=== PATIENT | female | born 1965 | race Caucasian/White ===

== ENCOUNTER 2017-03-23 21:03 | Emergency (ER) | payer MEDICAID ==
[2017-03-23] MEDS ORDERED: KETOROLAC 60 MG/2 ML VIAL IVP STA (21:36)
[2017-03-23] MEDS ORDERED: KETOROLAC 60 MG/2 ML VIAL ONE (21:38)
[2017-03-23] MEDS ORDERED: KETOROLAC 30 MG/ML VIAL ONE (21:41)
[2017-03-23] MEDS ORDERED: IOPAMIDOL-300 100 ML VIAL IVP ONE (22:45)
[2017-03-23] MEDS ORDERED: CIPROFLOXACIN 250 MG TABLET PO STA (23:44)
[2017-03-23] MEDS ORDERED: HYDROcod/ACET 5/325 Prepack 6 PO STA (23:44)
[2017-03-23] MEDS ORDERED: metroNIDAZOLE 250 MG TABLET PO STA (23:44)
[2017-03-23] MEDS ORDERED: HYDROmorphone 1 MG/ML SYRINGE IVP STA (23:44)
[2017-03-23] MEDS ORDERED: HYDROmorphone 1 MG/ML SYRINGE ONE (23:46)
[2017-03-23] MEDS ORDERED: metroNIDAZOLE 250 MG TABLET PO ONE (23:47)
[2017-03-23] MEDS ORDERED: CIPROFLOXACIN 250 MG TABLET PO ONE (23:47)
[2017-03-23] MEDS ORDERED: HYDROcod/ACET 5/325 Prepack 6 PO ONE (23:47)
== END 2017-03-23 23:58 | disposition home or self-care (01) ==
DX: K57.32 Diverticulitis of large intestine without perforation or abscess without bleeding (principal); K76.0 Fatty (change of) liver, not elsewhere classified; I10 Essential (primary) hypertension
CPT/HCPCS: 36415; 74177; 80053; 81001; 83690; 85025; 96374; 96375; 99283; 99284; A9270; J1170; Q9967

== ENCOUNTER 2018-09-05 13:51 | Outpatient (CLI) | payer MEDICAID ==
[2018-09-05 19:08] LABS: ALBUMIN 3.9 g/dL (3.2-5.5); ALKALINE PHOSPHATASE 104 IU/L (42-121); ALT ALANINE AMINOTRANSFERASE 53 IU/L (10-60); AST ASPARTATE AMINOTRANSFERASE 41 IU/L (10-42); BILIRUBIN,TOTAL 0.4 mg/dL (0.2-1.0); BUN - BLOOD UREA NITROGEN 14 mg/dL (6-20); CALCIUM 9.1 mg/dL (8.5-10.3); CARBON DIOXIDE - CO2 27 mmol/L (21-32); CHLORIDE 103 mmol/L (101-111); CHOL/HDL RATIO 4.1 (<4.4); CHOLESTEROL 207 mg/dL; CREATININE 0.7 mg/dL (0.4-1.0); GFR - MDRD 88 (>89); GLUCOSE 94 mg/dL (70-100); HDL CHOLESTEROL 50 mg/dL; LDL CHOLESTEROL,CALCULATED 121 mg/dL; LDL/HDL RATIO 2.4 (<4.4); SODIUM 140 mmol/L (135-145); TOTAL PROTEIN 7.8 g/dL (6.7-8.2); VLDL CHOLESTEROL 36 mg/dL
[2018-09-05 19:12] LABS: BASOPHILS % (AUTO) 0.3 %; EOSINOPHILS # (AUTO) 0.1 10^3/uL (0.0-0.7); EOSINOPHILS % (AUTO) 1.5 %; HGB - HEMOGLOBIN 13.5 g/dL (12.0-16.0); LYMPHOCYTES # (AUTO) 2.6 10^3/uL (1.5-3.5); LYMPHOCYTES % (AUTO) 37.5 %; MEAN CORPUSCULAR HEMOGLOBIN 29.3 pg (27.0-31.0); MEAN CORPUSCULAR HGB CONC 33.1 g/dL (32.0-36.0); MEAN CORPUSCULAR VOLUME 88.5 fL (81.0-99.0); MEAN PLATELET VOLUME 9.3 fL (7.9-10.8); MONOCYTES # (AUTO) 0.4 10^3/uL (0.0-1.0); MONOCYTES % (AUTO) 5.4 %; NEUTROPHILS # (AUTO) 3.8 10^3/uL (1.5-6.6); NEUTROPHILS % (AUTO) 55.3 %; PLT - PLATELET COUNT 247 10^3/uL (130-450); RED BLOOD COUNT 4.61 10^6/uL (4.20-5.40); RED CELL DISTRIBUTION WIDTH 14.4 % (12.0-15.0); WHITE BLOOD COUNT 6.8 x10^3/uL (4.8-10.8)
== END 2018-09-05 13:52 | disposition home or self-care (01) ==
LOC: LAB.N 13:51
PROVIDERS: ATTEND Family Medicine
DX: E55.9 Vitamin D deficiency, unspecified (principal); F32.9 Major depressive disorder, single episode, unspecified; I10 Essential (primary) hypertension
CPT/HCPCS: 36415; 80050; 80061; 82306; 83721

== ENCOUNTER 2018-12-01 20:34 | Outpatient (CLI) | payer MEDICAID ==
--- NOTE | 2018-12-03 14:24 | Ultrasound Report ---
Reason: ABDOMINAL BLOATING,ABDOMINAL PAIN,MORBID OBESITY Procedure Date: 12/01/2018 Accession Number: [id number] / [id number] Procedure: US - Pelvic w/Transvaginal CPT Code: FULL RESULT: EXAM: PELVIC ULTRASOUND EXAM DATE: 12/01/2018 09:15 PM. CLINICAL HISTORY: ABDOMINAL Bloating, abdominal Pain, morbid OBESITY. COMPARISON: ABDOMEN/PELVIS W/ 03/23/2017 10:40 PM. TECHNIQUE: Realtime transabdominal pelvic scan performed to identify the uterus and adnexa and as an overview of other pelvic structures, followed by transvaginal scan to provide greater detail of the uterus and adnexa, with static image documentation. FINDINGS: Uterus: Surgically absent. Cervix: Not well seen. The ovaries are not visualized. Free Fluid: None. Other: The urinary bladder appears unremarkable. IMPRESSION: The uterus is surgically absent. Nonvisualization of the ovaries. Unremarkable sonographic appearance of the urinary bladder. No free fluid visualized. RADIA
== END 2018-12-01 20:35 | disposition home or self-care (01) ==
LOC: DI 20:34
PROVIDERS: ATTEND Internal Medicine Gastroenterology
DX: R14.0 Abdominal distension (gaseous) (principal); R10.9 Unspecified abdominal pain; E66.01 Morbid (severe) obesity due to excess calories; Z90.710 Acquired absence of both cervix and uterus
CPT/HCPCS: 76830; 76856

== ENCOUNTER 2018-12-07 12:15 | Day surgery (SDC) | payer MEDICAID ==
[2018-12-07] MEDS ORDERED: LACTATED RINGERS 1,000 ML IV ONE (13:03)
[2018-12-07] MEDS ORDERED: fentaNYL 250 MCG/5 ML VIAL IVP ONE (14:00)
[2018-12-07] MEDS ORDERED: MIDAZOLAM 2 MG/2 ML VIAL IVP ONE (14:00)
[2018-12-07 15:12] VITALS: BP 157/53
== END 2018-12-07 12:16 | disposition home or self-care (01) ==
LOC: SDS 12:15
PROVIDERS: ATTEND Internal Medicine Gastroenterology
PROC: 0DJD8ZZ Inspection of Lower Intestinal Tract, Via Natural or Artificial Opening Endoscopic (ICD-10-PCS; principal; 2018-12-07 13:15)
DX: Z12.11 Encounter for screening for malignant neoplasm of colon (principal); E66.01 Morbid (severe) obesity due to excess calories; E55.9 Vitamin D deficiency, unspecified; J45.909 Unspecified asthma, uncomplicated; G47.33 Obstructive sleep apnea (adult) (pediatric); I10 Essential (primary) hypertension; D64.9 Anemia, unspecified; F40.240 Claustrophobia; Z68.43 Body mass index [BMI] 50.0-59.9, adult; F32.9 Major depressive disorder, single episode, unspecified; M53.80 Other specified dorsopathies, site unspecified
CPT/HCPCS: 45378; J3010; J7120

== ENCOUNTER 2018-12-11 07:07 | Outpatient (CLI) | payer MEDICAID ==
--- NOTE | 2018-12-11 11:20 | Ultrasound Report ---
Reason: ABDOMINAL BLOATING,ABDOMINAL PAIN,MORBID OBESITY Procedure Date: 12/11/2018 Accession Number: [id number] / [id number] Procedure: US - Abdomen Complete CPT Code: FULL RESULT: EXAM: ABDOMEN ULTRASOUND EXAM DATE: 12/11/2018 08:56 AM. CLINICAL HISTORY: Abdominal bloating, abdominal pain, morbid obesity. COMPARISON: None. TECHNIQUE: Real-time scanning was performed with static images obtained. FINDINGS: Liver: Markedly heterogeneous and echogenic liver parenchyma which limits evaluation for masses, no mass is seen. The right lobe of the liver measures at least 19.3 cm. Main portal vein flow: Hepatopetal. Gallbladder: Limited visualization of the gallbladder, impression of mobile calculus. Nontender. No pericholecystic fluid. Biliary System: Common bile duct measures 6 mm. No intrahepatic or extrahepatic ductal dilatation. Pancreas: Visualized portion is unremarkable. Kidneys: Right: 12 cm longitudinally. Normal. No contour-deforming mass, stones, or hydronephrosis. Left: 11 cm longitudinally. Normal. No contour-deforming mass, stones, or hydronephrosis. Spleen: 8.5 cm. Normal in size and echotexture. Aorta and Inferior Vena Cava: Unremarkable. Other: None. IMPRESSION: Echogenic liver parenchyma most often seen with steatosis. RADIA
== END 2018-12-11 07:08 | disposition home or self-care (01) ==
LOC: DI 07:07
PROVIDERS: ATTEND Internal Medicine Gastroenterology
DX: R14.0 Abdominal distension (gaseous) (principal); R10.9 Unspecified abdominal pain; E66.01 Morbid (severe) obesity due to excess calories
CPT/HCPCS: 76700

== ENCOUNTER 2019-01-08 08:53 | Day surgery (SDC) | payer MEDICAID ==
--- NOTE | 2019-01-08 09:17 | ANESTHESIA ---
Pre-Anesthesia VS, & Labs - Diagnosis cholelithiasis symptoms - Procedure laparoscopic cholecystectomy, possible IOC Vital Signs: Temp Pulse Resp BP Pulse Ox 36.8 C 65 18 168/79 H 98 01/08/19 09:00 01/08/19 09:00 01/08/19 09:00 01/08/19 09:00 01/08/19 09:00 Height 4 ft 11 in Weight (kg) 116.9 kg Body Mass Index 49.4 - NPO >8 hours - Is Patient ?: Not Applicable Home Medications and Allergies Home Medications: Ambulatory Orders No Known Home Medications 12/29/18 Active Medications Cefazolin Sodium 3 gm/ Sodium (Chloride) 100 mls @ 200 mls/hr IV ONCE ONE Stop: 01/08/19 10:29 No Known Home Medications 12/29/18 Allergies/Adverse Reactions: Allergies Allergy/AdvReac Type Severity Reaction Status Date / Time Penicillins Allergy Rash Verified 03/23/17 21:06 Anes History & Medical History - Anesthetic History Anesthesia Complications: reports: No previous complications Family history of Anesthesia Complications: Denies Family history of Malignant Hyperthermia: Denies - Medical History Cardiovascular: reports: Hypertension Pulmonary: reports: Sleep apnea Gastrointestinal: reports: Cholelithiasis, Other Urinary: reports: Kidney stones Musculoskeletal: reports: Chronic back pain Endocrine/Autoimmune: reports: None Skin: reports: None Smoking Status: Never smoker - Surgical History Gynecologic: Hysterectomy Exam General: Alert, Oriented x3, Cooperative, No acute distress Dental: WNL Mouth Openin Fingerbreadth Neck Mobility: Normal Mallampati classification: II Thyromental Distance: 4-6 cm Respiratory: Lungs clear, Normal breath sounds, No respiratory distress, No accessory muscle use Cardiovascular: Regular rate, Normal S1, Normal S2, No murmurs Mental/Cognitive Status: Alert/Oriented X3, Normal for patient Cognitive Status: Within normal limits Plan Anesthesia Type: General Consent for Procedure(s) Verified and Reviewed: Yes Code Status: Attempt Resuscitation ASA classification: 2-Mild systemic disease Is this case an emergency?: No
[2019-01-08] MEDS ORDERED: BUPIVACAINE 0.5% PF 30 ML VIAL ONE (09:28)
[2019-01-08] MEDS ORDERED: LACTATED RINGERS 1,000 ML IV ONE ×2 (09:48→12:09)
[2019-01-08] MEDS ORDERED: ceFAZolin 1 GM VIAL ONE (09:51)
[2019-01-08] MEDS ORDERED: BUPIVACAINE 0.5%-EPI 1:200000 PF 30 ML VIAL ONE (09:51)
[2019-01-08] MEDS ORDERED: ceFAZolin 3 GM in SODIUM CHLORIDE 0.9% 100ML 100 ML IV ONE (10:00)
[2019-01-08] MEDS ORDERED: IOTHALAMATE MEGLUMINE 50 ML VIAL ONE (10:04)
[2019-01-08] MEDS ORDERED: BUPIVACAINE 0.5%-EPI 1:200000 PF 30 ML VIAL SUBQ ONE (11:04)
[2019-01-08] MEDS ORDERED: SUGAMMADEX 500 MG/5 ML VIAL IVP ONE (11:38)
[2019-01-08] MEDS ORDERED: oxyCODONE 5 MG TABLET PO PRN (12:09)
[2019-01-08] MEDS ORDERED: IBUPROFEN 600 MG TABLET PO PRN (12:09)
[2019-01-08] MEDS ORDERED: ACETAMINOPHEN 325 MG TABLET PO PRN (12:09)
[2019-01-08] MEDS ORDERED: ONDANSETRON 4 MG/2 ML VIAL IVP PRN (12:09)
[2019-01-08] MEDS ORDERED: KETOROLAC 30 MG/ML VIAL IVP ONE (12:11)
[2019-01-08] MEDS ORDERED: ROCURONIUM 50 MG/5 ML VIAL IVP ONE (12:11)
[2019-01-08] MEDS ORDERED: PROPOFOL 200 MG/20 ML VIAL IVP ONE (12:11)
[2019-01-08] MEDS ORDERED: ONDANSETRON 4 MG/2 ML VIAL IVP ONE (12:11)
[2019-01-08] MEDS ORDERED: fentaNYL 250 MCG/5 ML VIAL IVP ONE (12:11)
[2019-01-08] MEDS ORDERED: MIDAZOLAM 2 MG/2 ML VIAL IVP ONE (12:11)
[2019-01-08] MEDS ORDERED: HYDROmorphone 0.5 MG/0.5 ML SYRINGE ONE ×2 (12:12→12:21)
[2019-01-08] MEDS ORDERED: ACETAMINOPHEN 1,000 MG/100 ML 100 ML IV ONE (12:22)
--- NOTE | 2019-01-08 12:44 | OPERATIVE REPORT ---
DATE OF SERVICE: 01/08/2019 Physician: Julio C Naqvi MD PREOPERATIVE DIAGNOSIS: Symptomatic gallbladder disease. POSTOPERATIVE DIAGNOSIS: Symptomatic gallbladder disease. PROCEDURE PERFORMED: Laparoscopic cholecystectomy. ANESTHESIA: General endotracheal by Claudia Abreu CRNA. SURGEON: Julio C Naqvi MD ESTIMATED BLOOD LOSS: 10 mL. COMPLICATIONS: None. FINDINGS: Patient had marked truncal obesity, which made the procedure technically challenging. The liver was enlarged with obvious fatty change. The gallbladder had moderate pericholecystic adhesions. The cystic duct was of normal caliber. Following resection and examining on the side table, the gallbladder was seen not to contain any visible stones. The visualized portions of the stomach, small and large bowel otherwise are within normal limits. INDICATIONS: Patient is a 53-year-old woman with postprandial epigastric and right upper quadrant pain, fatty food intolerance. Evaluation included ultrasonography, which revealed a probable mobile gallstone in the gallbladder, normal bile ducts. Laboratory testing was benign. She was felt to be suffering from symptomatic gallbladder disease, advised to undergo laparoscopic cholecystectomy. TECHNIQUE: After informed consent, patient was taken to the operating room where she was placed under general endotracheal anesthesia. Preoperative preparation included application of sequential calf compression boots and administration of 3 grams of cefazolin intravenously within an hour of the incision. Her abdomen was prepared with ChloraPrep solution and draped in the usual sterile fashion. A transverse incision was made along the inferior edge of the umbilicus and carried down through the layers of the abdominal wall until the peritoneum was identified and entered sharply. A 10 mm Bereket cannula was inserted and pneumoperitoneum achieved with carbon dioxide. A 10 mm 30-degree Michael telescope was inserted. Laparoscopy was carried out with findings noted above. Three additional 5 mm ports were placed in the right upper quadrant. The gallbladder was grasped and retracted in the cephalad and lateral direction. Pericholecystic adhesions were lysed bluntly with electrocautery, exposing the cystic triangle of Calot. This region was carefully dissected using the hook electrode and electrocautery obtaining critical view of safety. The cystic artery was doubly clipped proximally and distally and divided between. The cystic duct was triply clipped distally, doubly proximally, and divided between. The gallbladder was excised from the liver bed using electrocautery for dissection and hemostasis. It was detached, placed in an organ retrieval bag, extracted, opened on the side table, with findings noted above and the tissue sent for pathologic evaluation. After hemostasis was ensured, the right upper quadrant was copiously irrigated with saline solution, following which instruments and cannulas were removed under direct vision. Pneumoperitoneum was allowed to escape, and the incisions were closed in layers using continuous 0 Vicryl to reapproximate the midline fascia at the umbilicus, followed by 4-0 Monocryl subcuticular skin closure at all the port sites, and 20 mL of 0.5% Marcaine with epinephrine was infiltrated into the incisions to assist in postoperative analgesia. Dermabond completed wound closure. Anesthesia was terminated, and patient was transferred to the recovery room in satisfactory condition. Sponge and needle counts were correct x2. No drains were used. TD: 01/08/2019 12:23 PAT
[2019-01-08] MEDS ORDERED: fentaNYL 100 MCG/2 ML VIAL ONE (12:45)
[2019-01-08] MEDS ORDERED: oxyCODONE 5 MG TABLET ONE ×2 (13:46→15:06)
[2019-01-08 15:08] VITALS: BP 158/68
== END 2019-01-08 16:08 | disposition home or self-care (01) ==
LOC: SDS 08:53
PROVIDERS: ATTEND Internal Medicine Gastroenterology
PROC: 0FT44ZZ Resection of Gallbladder, Percutaneous Endoscopic Approach (ICD-10-PCS; principal; 2019-01-08 10:15)
DX: K81.1 Chronic cholecystitis (principal); E66.01 Morbid (severe) obesity due to excess calories; Z68.43 Body mass index [BMI] 50.0-59.9, adult; G47.33 Obstructive sleep apnea (adult) (pediatric); J45.909 Unspecified asthma, uncomplicated; I10 Essential (primary) hypertension; D64.9 Anemia, unspecified; F40.240 Claustrophobia; M53.80 Other specified dorsopathies, site unspecified; E55.9 Vitamin D deficiency, unspecified
CPT/HCPCS: 47562; A9270; J0131; J1170; J3010; J7120

== ENCOUNTER 2019-03-06 13:24 | Outpatient (CLI) | payer MEDICAID ==
--- NOTE | 2019-03-07 11:18 | Ultrasound Report ---
Reason: ABDOMINAL PAIN, CHRONIC Procedure Date: 03/06/2019 Accession Number: [id number] / [id number] Procedure: US - Abdomen Complete CPT Code: FULL RESULT: EXAM: ABDOMEN ULTRASOUND EXAM DATE: 03/06/2019 01:58 PM. CLINICAL HISTORY: Abdominal pain, chronic. COMPARISON: ABDOMEN COMPLETE 12/11/2018 7:31 AM ABDOMEN/PELVIS W/ 03/23/2017 10:40 PM. TECHNIQUE: Real-time scanning was performed with static images obtained. FINDINGS: Limited study due to poor acoustic windows. Liver: Very limited parenchymal visualization, parenchyma appears echogenic which limits evaluation for an underlying mass, none is seen. Right lobe of the liver measures at least 20.5 cm. Main portal vein flow: Hepatopetal. Gallbladder: Surgically absent. Biliary System: Common hepatic duct measures 2 mm, CBD is not seen. No intrahepatic or extrahepatic ductal dilatation. Pancreas: Essentially not seen. Kidneys: Right: 12.6 cm longitudinally. Limited assessment with no hydronephrosis. Left: 11.6 cm longitudinally. Limited assessment with no hydronephrosis. Spleen: 9 cm. Normal in size and echotexture. Aorta and Inferior Vena Cava: Unremarkable. Other: None. IMPRESSION: Limited examination, suspect hepatic steatosis and hepatomegaly. RADIA
== END 2019-03-06 13:25 | disposition home or self-care (01) ==
LOC: DI 13:24
PROVIDERS: ATTEND Nurse Practitioner
DX: R10.9 Unspecified abdominal pain (principal)
CPT/HCPCS: 76700

== ENCOUNTER 2019-05-18 15:15 | Outpatient (CLI) | payer MEDICAID ==
[2019-05-18 18:57] LABS: ALBUMIN 3.6 g/dL (3.2-5.5); ALBUMIN/GLOBULIN RATIO 0.9 (1.0-2.2); BILIRUBIN,TOTAL 0.3 mg/dL (0.2-1.0); CALCIUM 9.1 mg/dL (8.5-10.3); CREATININE 0.7 mg/dL (0.4-1.0); TOTAL PROTEIN 7.4 g/dL (6.7-8.2)
== END 2019-05-18 23:59 | disposition home or self-care (01) ==
LOC: LAB.N 15:15
PROVIDERS: ATTEND Family Medicine
DX: R10.9 Unspecified abdominal pain (principal); G89.29 Other chronic pain
CPT/HCPCS: 36415; 80053; 85610

== ENCOUNTER 2019-06-08 10:02 | Outpatient (CLI) | payer MEDICAID ==
[~2019-06-08 10:02] MED LIST: IOVERSOL 320 100 ML VIAL IVP ONE; IOVERSOL 320 50 ML VIAL ONE
[2019-06-08] MEDS ORDERED: IOVERSOL 320 100 ML VIAL IVP ONE ×3 (10:14→11:56)
[2019-06-08] MEDS ORDERED: IOVERSOL 320 50 ML VIAL ONE (10:14)
[2019-06-08] MEDS ORDERED: IOVERSOL 320 50 ML VIAL PO ONE (11:58)
--- NOTE | 2019-06-09 15:24 | CT Report ---
Reason: ABDOMINAL PAIN,CHRONIC Procedure Date: 06/08/2019 Accession Number: [id number] / [id number] Procedure: CT - Abdomen/Pelvis W CPT Code: FULL RESULT: EXAM: CT ABDOMEN AND PELVIS EXAM DATE: 06/08/2019 11:50 AM. CLINICAL HISTORY: ABDOMINAL PAIN,CHRONIC. COMPARISONS: ABDOMEN/PELVIS W/ 03/23/2017 10:40 PM. TECHNIQUE: Routine helical CT imaging was performed through the abdomen and pelvis. IV contrast: OPTI 320 90ML. Enteric contrast: Yes. Reconstructions: Coronal and sagittal. In accordance with CT protocol optimization, one or more of the following dose reduction techniques were utilized for this exam: automated exposure control, adjustment of mA and/or KV based on patient size, or use of iterative reconstructive technique. FINDINGS: ABDOMEN: Lung Bases: Incompletely included lower lungs are grossly clear. Heart size is within normal limits. No basilar effusions. Liver: Diffuse steatosis. Spleen: Unremarkable. Pancreas: Unremarkable. Gallbladder/Bile Ducts: Status post cholecystectomy. Biliary tree is normal caliber. Adrenal Glands: Unremarkable. Kidneys: Left kidney: No mass, calculus, or hydronephrosis. Right kidney: Redemonstration of duplicated collecting system, with pelvic caliectasis. Ureters appear to join proximally, with stable mild distention of the mid ureter. Peritoneum/Mesentery/Bowel: No free fluid, free air, or collection. No intestinal obstruction or inflammation. Colonic diverticulosis. No diverticulitis. The appendix is within normal limits. Lymph nodes: No mesenteric, periportal, or retroperitoneal lymphadenopathy. Vasculature: Abdominal aorta is nonaneurysmal. Portal vein is patent. Hepatic veins are patent. PELVIS: The bladder is unremarkable for the degree of distention. Uterus is absent. No obvious abnormally enlarged adnexal abnormalities. No pelvic lymphadenopathy. Bones: No suspicious osseous lesions. Mild scarring noted in the umbilical region. IMPRESSION: No acute abnormalities. Diffuse hepatic steatosis. Colonic diverticulosis without diverticulitis. RADIA
== END 2019-06-08 10:03 | disposition home or self-care (01) ==
LOC: DI 10:02
PROVIDERS: ATTEND Family Medicine
DX: R10.9 Unspecified abdominal pain (principal); K76.0 Fatty (change of) liver, not elsewhere classified; K57.30 Diverticulosis of large intestine without perforation or abscess without bleeding
CPT/HCPCS: 74177; Q9967

== ENCOUNTER 2020-04-23 15:11 | Emergency (ER) | payer MEDICAID ==
[2020-04-23 16:30] LABS: BASOPHILS % (AUTO) 0.2 %; EOSINOPHILS # (AUTO) 0.1 10^3/uL (0.0-0.7); HGB - HEMOGLOBIN 13.6 g/dL (12.0-16.0); LYMPHOCYTES # (AUTO) 2.8 10^3/uL (1.5-3.5); LYMPHOCYTES % (AUTO) 28.4 %; MEAN CORPUSCULAR HEMOGLOBIN 29.6 pg (27.0-31.0); MEAN CORPUSCULAR HGB CONC 32.6 g/dL (32.0-36.0); MEAN CORPUSCULAR VOLUME 90.8 fL (81.0-99.0); MEAN PLATELET VOLUME 10.8 fL (7.9-10.8); MONOCYTES # (AUTO) 0.7 10^3/uL (0.0-1.0); MONOCYTES % (AUTO) 6.9 %; NEUTROPHILS # (AUTO) 6.3 10^3/uL (1.5-6.6); NEUTROPHILS % (AUTO) 63.1 %; PLT - PLATELET COUNT 258 10^3/uL (130-450); RED BLOOD COUNT 4.59 10^6/uL (4.20-5.40); RED CELL DISTRIBUTION WIDTH 13.9 % (12.0-15.0)
[2020-04-23 16:32] LABS: BILIRUBIN,URINE NEGATIVE (NEGATIVE); GLUCOSE, URINE (UA) NEGATIVE (NEGATIVE); KETONES,URINE (UA) NEGATIVE (NEGATIVE); LEUKOCYTE ESTERASE, URINE NEGATIVE (NEGATIVE); NITRITE,URINE NEGATIVE (NEGATIVE); OCCULT BLOOD,URINE SMALL (NEGATIVE); PROTEIN,URINE NEGATIVE (NEGATIVE); UROBILINOGEN,URINE 0.2 (NORMAL) E.U./dL (NORMAL)
[2020-04-23 16:35] LABS: CLARITY,URINE CLEAR (CLEAR)
[2020-04-23 16:39] LABS: AMORPHOUS SEDIMENT,UR Few /LPF; BACTERIA,URINE None Seen /HPF (None Seen); RBC,URINE 0-5 /HPF (0-5); SQUAMOUS EPITHELIAL CELL,UR MOD Squamous (<= Few); STARCH,URINE PRESENT
[2020-04-23 16:46] LABS: ALBUMIN 3.9 g/dL (3.2-5.5); BILIRUBIN,TOTAL 0.6 mg/dL (0.2-1.0); CALCIUM 9.5 mg/dL (8.5-10.3); CREATININE 0.7 mg/dL (0.4-1.0); TOTAL PROTEIN 7.9 g/dL (6.7-8.2)
--- NOTE | 2020-04-23 17:09 | ED Physician Documentation ---
PD HPI ABD PAIN - Stated complaint Stated Complaint: R SIDE PAIN - Chief complaint Chief Complaint: Abd Pain - History obtained from History obtained from: Patient, Family - History of Present Illness Timing - onset: Enter time (1600), Yesterday Timing - duration: Days (1) Timing - details: Gradual onset, Still present Quality: Sharp, Pain Location: RLQ Radiation: No: Chest, , Lower back, Left flank, Left shoulder, Right flank, Right shoulder, Upper back Improved by: Laying still Worsened by: Moving, Position, Palpation Associated symptoms: Nausea. No: Fever, Vomiting, Diarrhea, Constipation Similar symptoms before: Has not had sx before Recently seen: Not recently seen - Additional information Additional information: Previous well 54-year-old female with a history of morbid obesity and a prior cholecystectomy has developed pain in the right lower quadrant that began yesterday afternoon at about 4:00. She has had increasing pain throughout the night she had a very difficult time getting any sleep last night and she has not been able to eat. She denies any fever she has had chills. She denies any other recent illness. Review of Systems Constitutional: reports: Chills. denies: Fever Eyes: denies: Decreased vision Ears: denies: Ear pain Nose: denies: Rhinorrhea / runny nose, Congestion Throat: denies: Sore throat Cardiac: denies: Chest pain / pressure, Palpitations Respiratory: denies: Dyspnea, Cough GI: reports: Abdominal Pain, Nausea. 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 - Present Medications Home Medications: Ambulatory Orders Medication Instructions Recorded Confirmed oxyCODONE [Roxicodone] 5 mg PO Q6H PRN #15 tablet 01/08/19 Hydrocodone/Acetaminophen 1 - 2 each PO Q6H PRN #14 tablet 04/23/20 [Hydrocodon-Acetaminophen 5-325] - Allergies Allergies/Adverse Reactions: Allergies Allergy/AdvReac Type Severity Reaction Status Date / Time Penicillins Allergy Rash Verified 03/23/17 21:06 - Social History Does the pt smoke?: No Smoking Status: Never smoker Does the pt drink ETOH?: No Does the pt have substance abuse?: No - Immunizations Immunizations are current?: Yes - POLST Patient has POLST: No PD ED PE NORMAL - Vitals Vital signs reviewed: Yes (hypertensive ) - General General: Alert and oriented X 3, Well developed/nourished, Other (The patient moves slowly and appears to be in pain from any movement.) - HEENT HEENT: Atraumatic, PERRL, EOMI - Neck Neck: Supple, no meningeal sign, No bony TTP - Cardiac Cardiac: RRR, No murmur - Respiratory Respiratory: No respiratory distress, Clear bilaterally - Abdomen Abdomen: Soft, Other (Body mass index is 53.1 and the right upper quadrant has no specific tenderness in the left upper quadrant without specific tenderness the right lower quadrant does have specific tenderness which is reproducible and reproduces the pain the patient is experiencing. 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, No motor deficit, No sensory deficit, Normal speech Eye Opening: Spontaneous Motor: Obeys Commands Verbal: Oriented GCS Score: 15 - Psych Psych: Normal mood, Normal affect Results - Vitals Vitals: Vital Signs - 24 hr 04/23/20 15:32 Temperature 36.8 C Heart Rate 80 Respiratory 16 Rate Blood Pressure 158/100 H O2 Saturation 96 Oxygen O2 Source Room air - Labs Labs: Laboratory Tests 04/23/20 04/23/20 04/23/20 16:20 16:24 16:24 WBC 10.0 RBC 4.59 Hgb 13.6 Hct 41.7 MCV 90.8 MCH 29.6 MCHC 32.6 RDW 13.9 Plt Count 258 MPV 10.8 Neut # (Auto) 6.3 Lymph # (Auto) 2.8 [place] # (Auto) 0.7 Eos # (Auto) 0.1 Baso # (Auto) 0.0 Absolute Nucleated RBC 0.00 Nucleated RBC % 0.0 Sodium 140 Potassium 4.1 Chloride 101 Carbon Dioxide 27 Anion Gap 12.0 BUN 17 Creatinine 0.7 Estimated GFR (MDRD) 88 L Glucose 118 H Calcium 9.5 Total Bilirubin 0.6 AST 34 ALT 52 Alkaline Phosphatase 98 Total Protein 7.9 Albumin 3.9 Globulin 4.0 Albumin/Globulin Ratio 1.0 Lipase 35 Urine Color YELLOW Urine Clarity CLEAR Urine pH 6.0 Ur Specific [place] 1.020 Urine Protein NEGATIVE Urine Glucose (UA) NEGATIVE Urine Ketones NEGATIVE Urine Occult Blood SMALL H Urine Nitrite NEGATIVE Urine Bilirubin NEGATIVE Urine Urobilinogen 0.2 (NORMAL) Ur Leukocyte Esterase NEGATIVE Urine RBC 0-5 Urine WBC 0-3 Ur Squamous Epith Cells MOD Squamous H Amorphous Sediment Few Urine Bacteria None Seen Urine Starch PRESENT Ur Microscopic Review INDICATED Urine Culture Comments NOT INDICATED - Rads (name of study) CT ab/pel with Radiology: Prelim report reviewed (Impression: Prior cholecystectomy. 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 There is no sign of urinary tract infection or calculus. Normal appendix found right lower quadrant. No evidence of acute diverticulitis. Mi nimal diverticulosis.), EMP read indepedently, See rad report PD MEDICAL DECISION MAKING - ED course Complexity details: reviewed results, re-evaluated patient, considered differential, d/w patient, d/w family ED course: 54-year-old female with right lower quadrant abdominal pain has not had fever or elevated white count she does have right lower quadrant tenderness that is specific and reproducible and she has a normal-appearing appendix on CT scan of the abdomen and pelvis.On reexamination the patient's pain appears slightly more lateral than McBurney's point and is present with movement. She has improvement with use of Dilaudid and Zofran. I have indicated the patient that I believe this is an abdominal wall muscle strain and may take some time to improve. We will provide some pain medication I have asked the patient to begin to eat again and to return to the emergency department for reevaluation should she develop fever vomiting or not be able to eat. Departure - Departure Disposition: 01 Home, Self Care Clinical Impression: Strain of abdominal wall Qualifiers: Encounter type: initial encounter Qualified Code(s): S39.011A - Strain of muscl e, fascia and tendon of abdomen, initial encounter Condition: Stable Instructions: ED Strain Abdominal Muscle Follow-Up: RAJESH VALERA MD [Primary Care Provider] - Prescriptions: Hydrocodone/Acetaminophen [Hydrocodon-Acetaminophen 5-325] 1 - 2 each PO Q6H PRN #14 tablet PRN Reason: pain
[2020-04-23] MEDS ORDERED: IOVERSOL 320 100 ML VIAL IVP ONE ×2 (17:19→18:32)
[2020-04-23] MEDS ORDERED: ONDANSETRON 4 MG/2 ML VIAL IVP STA (17:49)
[2020-04-23] MEDS ORDERED: LORazepam 2 MG/ML VIAL IVP STA (17:49)
[2020-04-23] MEDS ORDERED: HYDROmorphone 1 MG/ML CARPUJECT IVP STA (17:49)
--- NOTE | 2020-04-23 18:38 | CT Report ---
Reason: RLQ pain Procedure Date: 04/23/2020 Accession Number: [id number] / [id number] Procedure: CT - Abdomen/Pelvis W CPT Code: Final Report FULL RESULT: PROCEDURE: Abdomen/Pelvis W INDICATIONS: RLQ pain CONTRAST: IV CONTRAST: Optiray 320 ml: 100 PO CONTRAST: *NO PO CONTRAST TECHNIQUE: After the administration of oral and intravenous contrast, 5 mm thick sections acquired from the diaphragms to the symphysis. 5 mm thick coronal and sagittal reformats were acquired. For radiation dose reduction, the following was used: automated exposure control, adjustment of mA and/or kV according to patient size. COMPARISON: Prior similar CT 06/08/2019. FINDINGS: Image quality: Excellent. ABDOMEN: Lung bases: Lung bases are clear. Heart size is normal. Solid organs: Liver and spleen are normal in size and enhancement. Gallbladder appears previously resected Biliary system is non dilated. Pancreas enhances normally. No adrenal nodules. Kidneys demonstrate normal size and enhancement, without hydronephrosis. There is a duplex collecting system of the right kidney, with the 2 exiting ureters uniting superiorly, and traversing inferiorly as a single ureter. No urinary tract stone is found. Peritoneum and bowel: Bowel loops demonstrate normal wall thickness and caliber. No free fluid or air. Nodes and vessels: No retroperitoneal or mesenteric adenopathy by size criteria. Aorta and inferior vena cava are normal in size. Miscellaneous: No ventral hernias. PELVIS: Genitourinary: Bladder wall thickness is normal. Miscellaneous: No inguinal hernias or adenopathy. Normal appendix identified, right lower quadrant. No evidence of diverticulitis. No adnexal pathology found. Bones: No suspicious bony lesions. No vertebral body compression fractures. IMPRESSION: Prior cholecystectomy. 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 There is no sign of urinary tract infection or calculus. Normal appendix found right lower quadrant. No evidence of acute diverticulitis. Minimal diverticulosis. Reviewed by: Mohit Pro MD on 04/23/2020 6:36 PM PDT Approved by: Mohit Pro MD on 04/23/2020 6:36 PM PDT Station ID: [id number]
[2020-04-23 19:11] VITALS: BP 140/80
== END 2020-04-23 19:10 | disposition home or self-care (01) ==
LOC: ED 15:11
DX: S39.011A Strain of muscle, fascia and tendon of abdomen, initial encounter (principal); X58.XXXA Exposure to other specified factors, initial encounter; Z90.49 Acquired absence of other specified parts of digestive tract; I10 Essential (primary) hypertension; E66.01 Morbid (severe) obesity due to excess calories; Z68.43 Body mass index [BMI] 50.0-59.9, adult
CPT/HCPCS: 36415; 74177; 80053; 81001; 83690; 85025; 96374; 96375; 99284; J1170; J2060; Q9967; 81003; 87086

== ENCOUNTER 2020-07-29 23:18 | Outpatient (CLI) | payer MEDICAID | END 2020-07-29 23:19 | disposition EMS.NT | LOC: EMS 23:18 | PROVIDERS: ATTEND Surgery | DX: R51 Headache (principal) ==

== ENCOUNTER 2020-07-30 | Emergency (ER) | payer MEDICAID ==
--- NOTE | 2020-07-30 00:43 | ED Physician Documentation ---
PD HPI HEADACHE - Stated complaint Stated Complaint: GILES/DIZZY/NECK PX - Chief complaint Chief Complaint: Neuro - History obtained from History obtained from: Patient - History of Present Illness Timing - onset: How many hours ago (2-3), Today Timing - onset during: Rest Timing - duration: Hours (2-3) Timing - details: Gradual onset (onset over short period of time, but not abrupt per se, of right sided headache. Took BP and noted it to be very elevated. Took ASA and waited but GILES persisted and BP remained relatively high (was down to 180s at home). Had similar headache yesterday for short period and it went away. No h/o HAs.), Still present Worst headache ever?: No: Worst headache ever? Location: Right Quality: Throbbing, Aching Associated symptoms: Nausea. No: Fever, Stiff neck, Weakness, Numbness, Vision changes Improved by: No: Rest Worsened by: No: Light Contributing factors: Hypertension (not on meds). No: Recent illness, Trauma Similar symptoms before: Has not had sx before (no regular headaches in the past.) Recently seen: Not recently seen Review of Systems Constitutional: denies: Fever, Chills Eyes: denies: Loss of vision, Decreased vision Nose: denies: Rhinorrhea / runny nose, Congestion Throat: denies: Sore throat Cardiac: denies: Chest pain / pressure, Palpitations, Pedal edema, Calf pain Respiratory: denies: Dyspnea, Cough, Wheezing GI: reports: Nausea. denies: Abdominal Pain, Vomiting, Diarrhea Neurologic: reports: Headache. denies: Focal weakness, Numbness, Near syncope, Altered mental status, Head injury PD PAST MEDICAL HISTORY - Past Medical History Cardiovascular: Hypertension Respiratory: Sleep apnea Neuro: None Endocrine/Autoimmune: None GI: Cholelithiasis, Other : Kidney stones HEENT: None Psych: None, Claustrophobia Musculoskeletal: Chronic back pain Derm: None - Past Surgical History Past Surgical History: Yes /BURSAR: Hysterectomy - Present Medications Home Medications: Ambulatory Orders Medication Instructions Recorded Confirmed Hydrocodone/Acetaminophen 1 each PO Q6H PRN #15 tablet 07/30/20 [Hydrocodone-Acetamin 5-325 mg] Losartan [Cozaar] 50 mg PO DAILY #30 tablet 07/30/20 Ondansetron Odt [Zofran] 4 mg TL Q6H PRN #10 tablet 07/30/20 dexAMETHasone [Decadron] 4 mg PO DAILY #5 tablet 07/30/20 - Allergies Allergies/Adverse Reactions: Allergies Allergy/AdvReac Type Severity Reaction Status Date / Time Penicillins Allergy Rash Verified 07/30/20 00:17 - Social History Does the pt smoke?: No Smoking Status: Never smoker Does the pt drink ETOH?: No Does the pt have substance abuse?: No - Immunizations Immunizations are current?: Yes - POLST Patient has POLST: No PD ED PE NORMAL - Vitals Vital signs reviewed: Yes - General General: Alert and oriented X 3, Well developed/nourished, Other (headache and anxious. ) - HEENT HEENT: Pharynx benign - Neck Neck: Supple, no meningeal sign, No adenopathy - Cardiac Cardiac: RRR, No murmur - Respiratory Respiratory: Clear bilaterally - Abdomen Abdomen: Normal bowel sounds, Soft, Non tender - Female Female : Deferred - Rectal Rectal: Deferred - Back Back: No CVA TTP - Derm Derm: Normal color, Warm and dry - Neuro Neuro: Alert and oriented X 3, No motor deficit, Normal speech Results - Vitals Vitals: Vital Signs - 24 hr 07/30/20 07/30/20 07/30/20 00:07 00:28 02:23 Temperature 98.8 C H Heart Rate 100 98 103 H Respiratory 16 18 14 Rate Blood Pressure 226/105 H 190/52 H 182/88 H O2 Saturation 96 95 91 L 07/30/20 02:48 Temperature 37.1 C Heart Rate 84 Respiratory 21 Rate Blood Pressure 156/68 H O2 Saturation 95 Oxygen O2 Source Room air - EKG (time done) 00:14 Rate: Rate (enter#) (98) Rhythm: NSR [place]: Normal Intervals: Normal MT QRS: Normal Ischemia: Normal ST segments. No: ST elevation c/w ischemia, ST depression - Labs Labs: Laboratory Tests 07/30/20 07/30/20 07/30/20 01:30 01:30 01:30 WBC 6.7 RBC 4.62 Hgb 13.4 Hct 41.8 MCV 90.5 MCH 29.0 MCHC 32.1 RDW 14.0 Plt Count 202 MPV 11.0 H Neut # (Auto) 4.4 Lymph # (Auto) 1.8 [place] # (Auto) 0.3 Eos # (Auto) 0.2 Baso # (Auto) 0.0 Absolute Nucleated RBC 0.00 Nucleated RBC % 0.0 ESR Sodium 139 Potassium 3.5 Chloride 103 Carbon Dioxide 26 Anion Gap 10.0 BUN 14 Creatinine 0.7 Estimated GFR (MDRD) 88 L Glucose 134 H Calcium 8.9 Magnesium 1.9 Total Bilirubin 0.5 AST 42 ALT 73 H Alkaline Phosphatase 93 Troponin I High Sens 11.4 C-Reactive Protein 9.5 H Total Protein 7.6 Albumin 3.8 Globulin 3.8 Albumin/Globulin Ratio 1.0 Lipase 35 07/30/20 01:30 WBC RBC Hgb Hct MCV MCH MCHC RDW Plt Count MPV Neut # (Auto) Lymph # (Auto) [place] # (Auto) Eos # (Auto) Baso # (Auto) Absolute Nucleated RBC Nucleated RBC % ESR 50 H Sodium Potassium Chloride Carbon Dioxide Anion Gap BUN Creatinine Estimated GFR (MDRD) Glucose Calcium Magnesium Total Bilirubin AST ALT Alkaline Phosphatase Troponin I High Sens C-Reactive Protein Total Protein Albumin Globulin Albumin/Globulin Ratio Lipase - Rads (name of study) head CT Radiology: Other (patient declined due to anxiety of claustrophobia, despite offer of IV meds.) PD MEDICAL DECISION MAKING - ED course Complexity details: reviewed results (headache persisted even as BP was improving without meds. So less likely HTN caused, roberto with focal GILES. However, she has history of HTN and not on meds for awhile. Reasonable to start low dose med.), re-evaluated patient (she was too anxious about the CT (claustrophobia) and was offered IV meds, but still declined the CT. Discussed with her the risk of ICH as cause of the headache and she still declines the CT. GILES is better though.), considered differential, d/w patient Departure - Departure Disposition: 01 Home, Self Care Clinical Impression: Acute headache Qualifiers: Headache type: unspecified Intractability: not intractable Qualified Code(s): R51 - Headache High blood pressure Qualifiers: Hypertension type: unspecified Qualified Code(s): I10 - Essential (primary) hypertension Condition: Stable Record reviewed to determine appropriate education?: Yes Instructions: ED Cephalgia Unspecified, ED Hypertension New Begin Tx Follow-Up: [facility] [Provider Group] Prescriptions: Losartan [Cozaar] 50 mg PO DAILY #30 tablet dexAMETHasone [Decadron] 4 mg PO DAILY #5 tablet Hydrocodone/Acetaminophen [Hydrocodone-Acetamin 5-325 mg] 1 each PO Q6H PRN #15 tablet PRN Reason: Pain Ondansetron Odt [Zofran] 4 mg TL Q6H PRN #10 tablet PRN Reason: Nausea / Vomiting Comments: It is unclear the cause of your headache at this time. Return if persistent headache or continued significant headache. We cannot exclude causes such as acute bleeding or swelling without the CT scan. Your blood tests show mild elevation of an inflammatory marker. This could be caused by an inflammatory condition or may be a functional headache such as tension or hypertensive headache. Your blood pressure was initially fairly high and has improved reasonably but still a bit high. This is likely high enough to suggest starting a mild blood pressure medicine would be appropriate. Decadron steroid anti-inflammatory daily for 5 days for treatment of the headache. Add Tylenol or hydrocodone if needed for worse headache. Ondansetron if needed for nausea. Losartan daily for blood pressure. Call and make a follow-up appointment with primary care and return to ER if wor sening or recurrent severe headache symptoms. Discharge Date/Time: 07/30/20 02:56
[2020-07-30] MEDS ORDERED: KETOROLAC 30 MG/ML VIAL IVP STA (01:12)
[2020-07-30] MEDS ORDERED: SODIUM CHLORIDE 0.9% 1,000 ML IV STA (01:12)
[2020-07-30] MEDS ORDERED: PROCHLORPERAZINE 10 MG/2 ML VIAL IVP STA (01:13)
[2020-07-30] MEDS ORDERED: MORPHINE 2 MG/ML CARPUJECT IVP STA (01:14)
[2020-07-30 01:55] LABS: BASOPHILS % (AUTO) 0.1 %; EOSINOPHILS # (AUTO) 0.2 10^3/uL (0.0-0.7); EOSINOPHILS % (AUTO) 2.7 %; HGB - HEMOGLOBIN 13.4 g/dL (12.0-16.0); LYMPHOCYTES # (AUTO) 1.8 10^3/uL (1.5-3.5); LYMPHOCYTES % (AUTO) 26.9 %; MEAN CORPUSCULAR HGB CONC 32.1 g/dL (32.0-36.0); MEAN CORPUSCULAR VOLUME 90.5 fL (81.0-99.0); MONOCYTES # (AUTO) 0.3 10^3/uL (0.0-1.0); MONOCYTES % (AUTO) 5.1 %; NEUTROPHILS # (AUTO) 4.4 10^3/uL (1.5-6.6); NEUTROPHILS % (AUTO) 64.9 %; PLT - PLATELET COUNT 202 10^3/uL (130-450); RED BLOOD COUNT 4.62 10^6/uL (4.20-5.40); WHITE BLOOD COUNT 6.7 x10^3/uL (4.8-10.8)
[2020-07-30] MEDS ORDERED: LORazepam 2 MG/ML VIAL IVP STA (02:04)
[2020-07-30 02:15] LABS: ALBUMIN 3.8 g/dL (3.2-5.5); BILIRUBIN,TOTAL 0.5 mg/dL (0.2-1.0); CALCIUM 8.9 mg/dL (8.5-10.3); CREATININE 0.7 mg/dL (0.4-1.0); CRP - C-REACTIVE PROTEIN 9.5 mg/dL (0-1.0); MAGNESIUM 1.9 mg/dL (1.7-2.8); TOTAL PROTEIN 7.6 g/dL (6.7-8.2)
[2020-07-30] MEDS ORDERED: DEXAMETHASONE 10 MG/ML VIAL IVP STA (02:37)
[2020-07-30 02:49] VITALS: BP 156/68
== END 2020-07-30 02:56 | disposition home or self-care (01) ==
LOC: ED
DX: R51 Headache (principal); I10 Essential (primary) hypertension; F40.240 Claustrophobia; Z53.29 Procedure and treatment not carried out because of patient's decision for other reasons
CPT/HCPCS: 36415; 80053; 83690; 83735; 84484; 85025; 85651; 86140; 93005; 96361; 96374; 96375; 99284; J2060

== ENCOUNTER 2020-08-05 16:56 | Outpatient (CLI) | payer MEDICAID | END 2020-08-05 16:57 | disposition home or self-care (01) | LOC: COV 16:56 | PROVIDERS: ATTEND Family Medicine | DX: U07.1 COVID-19 (principal) ==

== ENCOUNTER 2020-08-22 08:20 | Outpatient (CLI) | payer MEDICAID | END 2020-08-22 23:59 | disposition home or self-care (01) | LOC: LAB.R 08:20 | PROVIDERS: ATTEND Family Medicine | DX: R05 Cough (principal); Z20.828 Contact with and (suspected) exposure to other viral communicable diseases ==

== ENCOUNTER 2020-08-22 09:11 | Outpatient (CLI) | payer MEDICAID ==
--- NOTE | 2020-08-22 16:14 | XRAY Report ---
PROCEDURE: Chest 2 View X-Ray INDICATIONS: COVID19/COUGH TECHNIQUE: 2 view(s) of the chest. COMPARISON: None. FINDINGS: Surgical changes and devices: None. Lungs and pleura: No pleural effusions or pneumothorax. Ill-defined patchy bilateral pulmonary opaci ties are noted. Mediastinum: Mediastinal contours are normal. Heart size is enlarged. Bones and chest wall: No suspicious bony abnormalities. Soft tissues appear unremarkable. IMPRESSION: Patchy appearance of bilateral pulmonary opacities. These could be related to infection or inflammation such as pneumonia. Recommend interval imaging follow-up to document resolution and ex clude presence of underlying mass lesion. Reviewed by: Jessie Daly MD on 08/22/2020 4:13 PM PDT Approved by: Jessie Daly MD on 08/22/2020 4:13 PM PDT Station ID: [id number]
== END 2020-08-22 09:12 | disposition home or self-care (01) ==
LOC: DI 09:11
PROVIDERS: ATTEND Family Medicine
DX: R05 Cough (principal); Z20.828 Contact with and (suspected) exposure to other viral communicable diseases
CPT/HCPCS: 71046

== ENCOUNTER 2020-08-27 13:30 | Outpatient (CLI) | payer MEDICAID | END 2020-08-27 13:31 | disposition home or self-care (01) | LOC: LAB 13:30 | PROVIDERS: ATTEND Family Medicine | DX: U07.1 COVID-19 (principal) | CPT/HCPCS: 36415; 86769 ==

== ENCOUNTER 2021-11-20 16:21 | Outpatient (CLI) | payer MEDICAID ==
[2021-11-20 21:29] LABS: BASOPHILS % (AUTO) 0.3 %; EOSINOPHILS # (AUTO) 0.1 10^3/uL (0.0-0.7); EOSINOPHILS % (AUTO) 1.1 %; HCT - HEMATOCRIT 40.5 % (37.0-47.0); HGB - HEMOGLOBIN 12.5 g/dL (12.0-16.0); LYMPHOCYTES # (AUTO) 2.8 10^3/uL (1.5-3.5); LYMPHOCYTES % (AUTO) 35.5 %; MEAN CORPUSCULAR HEMOGLOBIN 28.7 pg (27.0-31.0); MEAN CORPUSCULAR HGB CONC 30.9 g/dL (32.0-36.0); MEAN CORPUSCULAR VOLUME 92.9 fL (81.0-99.0); MEAN PLATELET VOLUME 11.6 fL (7.9-10.8); MONOCYTES # (AUTO) 0.4 10^3/uL (0.0-1.0); MONOCYTES % (AUTO) 4.9 %; NEUTROPHILS # (AUTO) 4.6 10^3/uL (1.5-6.6); NEUTROPHILS % (AUTO) 57.9 %; PLT - PLATELET COUNT 257 10^3/uL (130-450); RED BLOOD COUNT 4.36 10^6/uL (4.20-5.40); RED CELL DISTRIBUTION WIDTH 13.3 % (12.0-15.0)
[2021-11-20 21:43] LABS: ALBUMIN 3.7 g/dL (3.2-5.5); ALBUMIN/GLOBULIN RATIO 0.9 (1.0-2.2); BILIRUBIN,TOTAL 0.4 mg/dL (0.2-1.0); CREATININE 0.8 mg/dL (0.4-1.0); CREATININE,URINE 232.4 mg/dL; CRP - C-REACTIVE PROTEIN 5.6 mg/dL (0-1.0); MICROALBUMIN,URINE 2.1 mg/dL (0-300.0); POTASSIUM 4.4 mmol/L (3.5-5.0); TOTAL PROTEIN 7.7 g/dL (6.7-8.2)
[2021-11-20 21:56] LABS: THYROID STIMULATING HORMONE 0.41 uIU/mL (0.34-5.60)
[2021-11-20 22:02] LABS: ESTIMATED AVERAGE GLUCOSE 177 mg/dL (70-100); HEMOGLOBIN A1c% 7.8 % (4.27-6.07)
[2021-11-20 22:23] LABS: FOLLICLE STIMULATING HORMONE 50.59 mIU/mL
[2021-11-20 22:24] LABS: LUTEINIZING HORMONE 39.01 mIU/mL
== END 2021-11-20 16:22 | disposition home or self-care (01) ==
LOC: LAB.N 16:21
PROVIDERS: ATTEND Nurse Practitioner
DX: I10 Essential (primary) hypertension (principal); G44.099 Other trigeminal autonomic cephalgias (TAC), not intractable; N95.9 Unspecified menopausal and perimenopausal disorder; E66.01 Morbid (severe) obesity due to excess calories; R53.83 Other fatigue; F32.A Depression, unspecified
CPT/HCPCS: 36415; 80050; 82043; 82570; 82607; 82670; 83001; 83002; 83036; 85651; 86140

== ENCOUNTER 2021-12-02 15:44 | Outpatient (CLI) | payer MEDICAID ==
--- NOTE | 2021-12-03 13:44 | Mammography Report ---
BILATERAL DIGITAL SCREENING MAMMOGRAM 3D/2D: 12/02/2021 CLINICAL: Routine screening. Comparison is made to exams dated: 07/31/2015 mammogram and [facility] There are scattered fibroglandular elements in both breasts. No significant masses, calcifications, or other findings are seen in either breast. There has been no significant interval change. IMPRESSION: NEGATIVE There is no mammographic evidence of malignancy. A 1 year screening mammogram is recommended. This exam was interpreted at Station ID: [id number]. NOTE: For mammograms, a report in lay terms will be sent to the patient. Approximately 15% of breast malignancies will not be visualized mammographically. In the management of a palpable breast mass, a negative mammogram must not discourage biopsy of a clinically suspicious lesion. Electronically Signed By: Rafael Araya M.D., jr/veronika:12/02/2021 16:35:04 ACR BI-RADS Category 1: Negative 3341F PARENCHYMAL PATTERN: (A) - The breast(s) demonstrate(s) scattered fibroglandular densities. BI-RADS CATEGORY: (1) - 1 RECOMMENDATION: (ANNUAL) - Recommend routine annual screening mammography. [id number] 1 year screening LATERALITY: (B)
== END 2021-12-02 15:45 | disposition home or self-care (01) ==
LOC: DI.N 15:44
PROVIDERS: ATTEND Nurse Practitioner
DX: Z12.31 Encounter for screening mammogram for malignant neoplasm of breast (principal)

== ENCOUNTER 2022-01-19 16:57 | Outpatient (CLI) | payer MEDICAID ==
[2022-01-19 20:39] LABS: BASOPHILS % (AUTO) 0.2 %; EOSINOPHILS % (AUTO) 0.1 %; HCT - HEMATOCRIT 40.3 % (37.0-47.0); HGB - HEMOGLOBIN 13.1 g/dL (12.0-16.0); LYMPHOCYTES # (AUTO) 2.1 10^3/uL (1.5-3.5); LYMPHOCYTES % (AUTO) 18.9 %; MEAN CORPUSCULAR HEMOGLOBIN 29.4 pg (27.0-31.0); MEAN CORPUSCULAR HGB CONC 32.5 g/dL (32.0-36.0); MEAN CORPUSCULAR VOLUME 90.6 fL (81.0-99.0); MEAN PLATELET VOLUME 11.7 fL (7.9-10.8); MONOCYTES # (AUTO) 0.3 10^3/uL (0.0-1.0); MONOCYTES % (AUTO) 3.1 %; NEUTROPHILS # (AUTO) 8.5 10^3/uL (1.5-6.6); NEUTROPHILS % (AUTO) 77.3 %; PLT - PLATELET COUNT 270 10^3/uL (130-450); RED BLOOD COUNT 4.45 10^6/uL (4.20-5.40); RED CELL DISTRIBUTION WIDTH 13.7 % (12.0-15.0)
[2022-01-19 20:48] LABS: ALBUMIN/GLOBULIN RATIO 1.1 (1.0-2.2); BILIRUBIN,TOTAL 0.3 mg/dL (0.2-1.0); CALCIUM 9.6 mg/dL (8.5-10.3); CREATININE 0.8 mg/dL (0.4-1.0); POTASSIUM 4.4 mmol/L (3.5-5.0); TOTAL PROTEIN 7.8 g/dL (6.7-8.2)
[2022-01-19 21:05] LABS: THYROID STIMULATING HORMONE 0.22 uIU/mL (0.34-5.60)
[2022-01-19 21:58] LABS: FREE T4 (FREE THYROXINE) 0.94 ng/dL (0.58-1.64)
== END 2022-01-19 16:58 | disposition home or self-care (01) ==
LOC: LAB.N 16:57
PROVIDERS: ATTEND Nurse Practitioner
DX: I10 Essential (primary) hypertension (principal); F32.A Depression, unspecified; R53.83 Other fatigue
CPT/HCPCS: 36415; 80050; 84439

== ENCOUNTER 2022-01-20 00:35 | Emergency (ER) | payer MEDICAID ==
--- NOTE | 2022-01-20 01:00 | ED Physician Documentation ---
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 No: Fever, Stiff neck, Nausea, Vomiting, Weakness, Numbness Improved by: Nothing Worsened by: Other (no exacerbating factors) Similar symptoms before: Has not had sx before Recently seen: Clinic - Additional information Additional information: patient has had recent testing for body aches, predominantly bilateral shoulder pain. ESR and CRP performed in November were both elevated (63 and 5.6, respectively). She was evaluated by rheumatology 2 weeks ago and then again five days ago; on this more recent visit, she was given discharge instructions (she has with her) for polymyalgia rheumatica and giant cell arteritis and was started on prenisone 15mg QAM. She has follow up appointment arranged for 10 days from now She presents at this time for chief complaint of headache. 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 The headache is bifrontal, worse on right, and associated with blurry vision (again bilateral but predominantly right eye), jaw pain, and tenderness of right periorbital and temporal areas. she denies eye pain per se. Jaw pain just began with the headache tonight, has not eaten anything since onset so cannot say if chewing exacerbates the jaw pain. She had outpatient blood work yesterday afternoon (less than 12 hours before this ED evaluation): no remarkable results on CBC (wbc 11.0), CMP (BUN 21 with 0.9 creatinine and blood sugar 146), normal free T4 with TSH 0.22 Review of Systems Constitutional: reports: Myalgias. denies: Fever, Chills, Sweats Eyes: reports: Decreased vision (blurry vision right eye). denies: Loss of vision, Photophobia Ears: reports: Reviewed and negative Nose: reports: Reviewed and negative Neurologic: reports: Headache. 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 - Present Medications Home Medications: Ambulatory Orders Medication Instructions Recorded Confirmed Cyanocobalamin (Vitamin B-12) 1,000 mcg PO DAILY 01/07/22 01/20/22 [Vitamin B-12] Lisinopril [Zestril] 20 mg PO DAILY 01/07/22 01/20/22 Metformin HCl [Glumetza] 500 mg PO BID 01/07/22 01/20/22 clonazePAM [KlonoPIN] 0.5 mg PO BID PRN 01/07/22 01/20/22 Oxycodone HCl/Acetaminophen 1 - 2 each PO Q6H PRN #14 tablet 01/20/22 [Percocet 5-325 mg Tablet] Prednisone [David] 01/20/22 predniSONE [Deltasone] 5 mg PO DAILY 01/20/22 01/20/22 predniSONE [Deltasone] 60 mg PO DAILY 14 Days #42 tablet 01/20/22 - Allergies Allergies/Adverse Reactions: Allergies Allergy/AdvReac Type Severity Reaction Status Date / Time Penicillins Allergy Rash Verified 01/20/22 00:49 - Social History Does the pt smoke?: No Smoking Status: Never smoker Does the pt drink ETOH?: No Does the pt have substance abuse?: No - Immunizations Immunizations are current?: Yes - POLST Patient has POLST: No PD ED PE NORMAL - Vitals Vital signs reviewed: Yes - General General: Alert and oriented X 3, Well developed/nourished, Other (appears uncomfortable) - HEENT HEENT: PERRL, EOMI - Neck Neck: Supple, no meningeal sign - Derm Derm: Normal color, No rash - Neuro Neuro: Alert and oriented X 3, 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, No motor deficit, No sensory deficit, Normal speech Eye Opening: Spontaneous Motor: Obeys Commands Verbal: Oriented GCS Score: 15 PD ED PE EXPANDED - HEENT HEENT: Other (TTP right temporal area without erythema) - Eyes Eyes: Normal fundi (examined with panophthalmoscope) Results - Vitals Vitals: Vital Signs - 24 hr 01/20/22 01/20/22 01/20/22 00:45 02:49 04:00 Temperature 35.7 C L Heart Rate 74 75 76 Respiratory 17 18 17 Rate Blood Pressure 165/66 H 159/68 H 160/79 H O2 Saturation 98 99 99 01/20/22 05:00 Temperature 36.1 C L Heart Rate 72 Respiratory 16 Rate Blood Pressure 158/80 H O2 Saturation 99 Oxygen O2 Source Room air - Labs Labs: Laboratory Tests 01/20/22 01/20/22 03:16 03:16 ESR 55 H C-Reactive Protein 4.1 H - Rads (name of study) CT head Radiology: Prelim report reviewed, See rad report PD MEDICAL DECISION MAKING - ED course Complexity details: reviewed old records, reviewed results, re-evaluated patient, considered differential, d/w patient ED course: recently evaluated by rheumatology and per patient and the patient information sheets she was given (she has these with her), it seems the suspected diagnosis is PMR. The patient instructions are a single set for PMR and giant cell arteritis; given that her headache and blurry vision did not start until tonight, and the relatively low dose of prednisone (15mg QAM), does not seem that giant cell arteritis was suspected at the time of this recent evaluation and that she was given the single set patient information because of the association of one diagnosis with the other. she has tenderness to palpation over the right temporal area without any erythema. She says she has an upcoming MRI of brain. She is given oxycodone 5mg PO with second dose due to inadequate response to first dose. She is also given 1mg PO lorazepam, as she says she is claustrophobic (she says she also was prescribed a single dose of something for anxiety to be taken the day of the upcoming MRI). I explained the difference between CT and MRI but she says she is still apprehensive and thus given the lorazepam before CT undertaken tonight. There are no concerning findings on the CT. CBC, CMP, and TSH/free T4 were undertaken less than 12 hours ago and thus no blood tests ordered except ESR and CRP. Slight decreases from November in ESR and CRP (ESR 55, CRP 4.1). Given her description of symptoms, high suspicion for PMR and now temporal / giant cell arteritis. I discussed the case with Dr. Carson He (elementary teacher covering for Dr. Carreno); plan is to increase prednisone to 60 mg PO QD and follow up with Dr. Gresham. Patient given 60mg prednisone in ED. On reevaluation prior to discharge, she appears more comfortable and reports improvement in her headache and bilateral shoulder pains. I discussed the test results with patient and my discussion with Dr. He, recommended she contact her elementary teacher in the morning to see if expedited follow up can be arranged. Return precautions discussed. I am prescribing a short course of short-acting opioid pain medication for this patient. 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 I have discussed that the opioids are for short term therapy only, and will not be refilled from the ED Departure - Departure Disposition: 01 Home, Self Care Clinical Impression: Headache Qualifiers: Headache type: unspecified Headache chronicity pattern: acute headache Intractability: not intractable Qualified Code(s): R51.9 - Headache, unspecified Condition: Good Instructions: Understanding Polymyalgia Rheumatica, ED Cephalgia Unspecified, ED Arteritis Temporal Prescriptions: predniSONE [Deltasone] 60 mg PO DAILY 14 Days #42 tablet Oxycodone HCl/Acetaminophen [Percocet 5-325 mg Tablet] 1 - 2 each PO Q6H PRN #14 tablet PRN Reason: pain Comments: Your description of your symptoms is consistent with temporal arteritis (also called giant cell arteritis). However, as we discussed, this diagnosis can only be made with testing that cannot be done in the emergency department (typically with a biopsy of the temporal artery, although sometimes the diagnosis can be made with a specific type of ultrasound study). At this time, the diagnosis of temporal arteritis is suspected but not definite. I discussed your case with Dr. Carson He (rheumatology at [facility], on- call for Dr. Marga duarte). Contact your elementary teacher this morning to let them know of the visit to the emergency department and to see if you can get a follow-up appointment sooner than the scheduled appointment you already have. I am sending prescriptions to [facility] pharmacy in [place]: one is for oxycodone with acetaminophen (a strong pain medication). The other is for prednisone at a higher dose than what you are already taking. Stop taking the 15mg prednisone and start taking the 60mg prednisone once per day. I have written for two weeks of this higher dose prednisone; it is very important that you are reevaluated before running out of this prescription for prednisone because you will need to be tapered down slowly off of this higher dose. I am prescribing a short course of narcotic pain medication for you. These are potentially dangerous and addictive medications that should be used carefully. These medications may constipate you. Take an vjqc-[id number]-bvuzjlc stool softener (docusate) twice daily with plenty of water while taking these medications. If you go 24 hours without a bowel movement, take [id number] miralax, per package instructions. Do not drink or drive while taking these medications. If you received narcotic or sedating medications while in the emergency department, do not drive for 24 hours. Store this medication in a safe, secure place and out of reach of children. It is a violation of federal law to give or sell this medication to another person or to use in a manner other than prescribed. The ED will not refill narcotic prescriptions, including prescriptions lost or stolen. To dispose of unwanted medications: 1. [facility] at [address] in [place] has a medication drop box. They accept prescription medications (in pill form) Tuesday through Tuesday 9:00 a.m. to 5:00 p.m. 2. The [facility] [employer] accepts prescription medications (in pill form only) for disposal year round. Call for more information. 3. Contact the [facility] for the next [facility] sponsored prescription drug collection event. , [phone], or [phone]; Discharge Date/Time: 01/20/22 05:02
[2022-01-20] MEDS ORDERED: LORazepam 0.5 MG TABLET PO STA (01:23)
[2022-01-20] MEDS ORDERED: oxyCODONE 5 MG TABLET PO STA ×2 (01:23→02:21)
[2022-01-20] MEDS ORDERED: predniSONE 20 MG TABLET PO STA (02:59)
[2022-01-20 05:01] VITALS: BP 158/80
--- NOTE | 2022-01-20 07:46 | CT Report ---
PROCEDURE: HEAD WO INDICATIONS: headache, new onset TECHNIQUE: Noncontrast 4.5 mm thick angled axial sections acquired from the foramen magnum to the vertex. For r adiation dose reduction, the following was used: automated exposure control, adjustment of mA and/or kV according to patient size. COMPARISON: None. FINDINGS: Image quality: Degraded by patient motion artifact. CSF spaces: Basal cisterns are patent. No extra-axial fluid collections. Ventricles are normal in size and shape. Brain: No midline shift. No intracranial masses or hemorrhage. Reyes-white matter interface is norm al. Skull and face: Calvarium and visualized facial bones are intact, without suspicious lesions. Sinuses: Visualized sinuses and mastoids are clear. IMPRESSION: No acute intracranial disease process. Reviewed by: Shavonne Pina MD, PhD on 01/20/2022 7:45 AM PST Approved by: Shavonne Pina MD, PhD on 01/20/2022 7:45 AM PST Station ID: [id number]
== END 2022-01-20 05:02 | disposition home or self-care (01) ==
LOC: ED 00:35
DX: R51.9 Headache, unspecified (principal); I10 Essential (primary) hypertension
CPT/HCPCS: 36415; 70450; 85651; 86140; 99284; A9270; J7512

== ENCOUNTER 2022-12-01 08:57 | Outpatient (CLI) | payer MEDICAID ==
[2022-12-01 12:51] LABS: BASOPHILS % (AUTO) 0.1 %; EOSINOPHILS # (AUTO) 0.1 10^3/uL (0.0-0.7); EOSINOPHILS % (AUTO) 1.4 %; HCT - HEMATOCRIT 38.7 % (37.0-47.0); HGB - HEMOGLOBIN 11.9 g/dL (12.0-16.0); LYMPHOCYTES # (AUTO) 3.6 10^3/uL (1.5-3.5); MEAN CORPUSCULAR HEMOGLOBIN 28.3 pg (27.0-31.0); MEAN CORPUSCULAR HGB CONC 30.7 g/dL (32.0-36.0); MEAN CORPUSCULAR VOLUME 91.9 fL (81.0-99.0); MEAN PLATELET VOLUME 10.9 fL (7.9-10.8); MONOCYTES # (AUTO) 0.6 10^3/uL (0.0-1.0); MONOCYTES % (AUTO) 5.7 %; NEUTROPHILS # (AUTO) 5.7 10^3/uL (1.5-6.6); NEUTROPHILS % (AUTO) 56.6 %; PLT - PLATELET COUNT 277 10^3/uL (130-450); RED BLOOD COUNT 4.21 10^6/uL (4.20-5.40); RED CELL DISTRIBUTION WIDTH 14.3 % (12.0-15.0); WHITE BLOOD COUNT 10.1 x10^3/uL (4.8-10.8)
[2022-12-01 13:05] LABS: CREATININE,URINE 244.7 mg/dL; MICROALBUM/CREATININE RATIO,UR 11.9 ug/mg (<30.0); MICROALBUMIN,URINE 2.9 mg/dL (0-300.0)
[2022-12-01 13:08] LABS: ESTIMATED AVERAGE GLUCOSE 166 mg/dL (70-100); HEMOGLOBIN A1c% 7.4 % (4.27-6.07)
[2022-12-01 13:16] LABS: ALBUMIN 3.4 g/dL (3.2-5.5); ALBUMIN/GLOBULIN RATIO 0.9 (1.0-2.2); ALKALINE PHOSPHATASE 75 IU/L (42-121); ALT ALANINE AMINOTRANSFERASE 25 IU/L (10-60); AST ASPARTATE AMINOTRANSFERASE 20 IU/L (10-42); BILIRUBIN,TOTAL 0.4 mg/dL (0.2-1.0); BUN - BLOOD UREA NITROGEN 18 mg/dL (6-20); CALCIUM 9.2 mg/dL (8.5-10.3); CARBON DIOXIDE - CO2 27 mmol/L (21-32); CHLORIDE 103 mmol/L (101-111); CHOL/HDL RATIO 3.6 (<4.4); CHOLESTEROL 193 mg/dL; CREATININE 0.9 mg/dL (0.4-1.0); CRP - C-REACTIVE PROTEIN 4.1 mg/dL (0-1.0); GFR - MDRD 65 (>89); GLUCOSE 161 mg/dL (70-100); HDL CHOLESTEROL 53 mg/dL; LDL CHOLESTEROL,CALCULATED 118 mg/dL; LDL/HDL RATIO 2.2 (<4.4); POTASSIUM 3.9 mmol/L (3.5-5.0); SODIUM 140 mmol/L (135-145); TOTAL PROTEIN 7.3 g/dL (6.7-8.2); TRIGLYCERIDES 109 mg/dL; VLDL CHOLESTEROL 22 mg/dL
== END 2022-12-01 08:58 | disposition home or self-care (01) ==
LOC: LAB.N 08:57
PROVIDERS: ATTEND Nurse Practitioner
DX: E78.5 Hyperlipidemia, unspecified (principal); E11.9 Type 2 diabetes mellitus without complications; R53.83 Other fatigue; M35.3 Polymyalgia rheumatica
CPT/HCPCS: 36415; 80053; 80061; 82043; 82570; 82607; 83036; 83721; 85025; 85651; 86140

== ENCOUNTER 2023-02-21 08:58 | Outpatient (CLI) | payer MEDICAID ==
[2023-02-21 13:09] LABS: ESTIMATED AVERAGE GLUCOSE 169 mg/dL (70-100); HEMOGLOBIN A1c% 7.5 % (4.27-6.07)
== END 2023-02-21 08:59 | disposition home or self-care (01) ==
LOC: LAB.N 08:58
PROVIDERS: ATTEND Nurse Practitioner
DX: E11.9 Type 2 diabetes mellitus without complications (principal); M35.3 Polymyalgia rheumatica
CPT/HCPCS: 36415; 83036; 85651; 86140

== ENCOUNTER 2023-08-31 11:33 | Outpatient (CLI) | payer MEDICAID ==
[2023-08-31 20:16] LABS: ESTIMATED AVERAGE GLUCOSE 134 mg/dL (70-100); HEMOGLOBIN A1c% 6.3 % (4.27-6.07)
== END 2023-08-31 11:34 | disposition home or self-care (01) ==
LOC: LAB.N 11:33
PROVIDERS: ATTEND Nurse Practitioner
DX: E11.9 Type 2 diabetes mellitus without complications (principal)
CPT/HCPCS: 36415; 83036

== ENCOUNTER 2024-04-05 09:25 | Outpatient (CLI) | payer MEDICAID ==
[2024-04-05 12:17] LABS: ESTIMATED AVERAGE GLUCOSE 128 mg/dL (70-100); HEMOGLOBIN A1c% 6.1 % (4.27-6.07)
[2024-04-05 12:22] LABS: CHOL/HDL RATIO 2.2 (<4.4); CHOLESTEROL 120 mg/dL; HDL CHOLESTEROL 54 mg/dL; LDL CHOLESTEROL,CALCULATED 47 mg/dL; LDL/HDL RATIO 0.9 (<4.4); TRIGLYCERIDES 96 mg/dL (48-352); VLDL CHOLESTEROL 19 mg/dL
== END 2024-04-05 09:26 | disposition home or self-care (01) ==
LOC: LAB.N 09:25
PROVIDERS: ATTEND Nurse Practitioner
DX: E11.9 Type 2 diabetes mellitus without complications (principal); E78.5 Hyperlipidemia, unspecified
CPT/HCPCS: 36415; 80061; 83036; 83721